=== PATIENT | female | born 1995 | race Caucasian/White ===

== ENCOUNTER 2018-11-28 19:28 | Emergency (ER) | payer OTHER ==
[2018-11-28 19:44] VITALS: BP 119/71; PULSE 113; TEMP 98.7; BMI 26.4
--- NOTE | 2018-11-28 19:44 | PDOC ---
Rapid Medical Evaluation Chief Complaint: Vaginal Bleeding Time Seen by Provider: 11/28/18 19:41 Medical Evaluation: Allergies Allergy/AdvReac Type Severity Reaction Status Date / Time No Known Allergies Allergy Verified 11/28/18 19:42 11/28/18 19:42 I have performed a brief in-person evaluation of this patient. The patient presents with a chief complaint of: vaginal bleeding since today not soaking a pad. LMP 8/4. h/o irregular periods. report cramping abdominal pains Pertinent physical exam findings: A&O x 3 in NAD I have ordered the following: CBC, hcg, t&S The patient will proceed to the ED for further evaluation. Discharge Disposition - Diagnosis Vaginal bleeding - Discharge Dispostion Condition at time of disposition: Stable - Referrals - Patient Instructions - Post Discharge Activity
[2018-11-28 20:44] LABS: BASO % 0.7 % (0-2.0); HEMATOCRIT 42.5 % (32.4-45.2); HEMOGLOBIN 13.7 GM/dL (10.7-15.3); LYMPH % 26.5 % (8-40); MCH 29.1 pg (25.7-33.7); MCHC 32.3 g/dl (32.0-36.0); MEAN PLT VOLUME 8.6 fl (7.5-11.1); MONO % 9.8 % (3.8-10.2); PLATELET COUNT 268 K/MM3 (134-434); RBC 4.71 M/mm3 (3.60-5.2); RDW 14.2 % (11.6-15.6); WHITE BLOOD COUNT 7.7 K/mm3 (4.0-10.0)
--- NOTE | 2018-11-28 20:45 | PDOC ---
Attending Attestation - Resident Resident Name: Jonnie Ballesteros - ED Attending Attestation I have performed the following: I have examined & evaluated the patient, The case was reviewed & discussed with the resident, I agree w/resident's findings & plan - HPI HPI: 11/28/18 21:57 see resident hpi - Physicial Exam PE: 11/28/18 21:58 agree with resident exam - Medical Decision Making 11/28/18 21:58 23-year-old female, with passage of tissue and vaginal bleeding Tissue retrieved in the emergency department is consistent with embryo within the gestational sac Ultrasound shows no significant findings History and exam most consistent with completed Patient is currently asymptomatic, she will be discharged to follow-up with her [facility] and to return if fever or worsening pain develops
[2018-11-28 21:15] LABS: ALBUMIN 4.2 g/dl (3.4-5.0); BILIRUBIN,TOTAL 0.9 mg/dL (0.2-1); BLOOD UREA NITROGEN 6.2 mg/dL (7-18); CALCIUM 8.8 mg/dL (8.5-10.1); CREATININE 0.7 mg/dL (0.55-1.3); POTASSIUM 3.9 mmol/L (3.5-5.1); TOT PROT 7.7 g/dl (6.4-8.2)
--- NOTE | 2018-11-28 21:16 | PDOC ---
History of Present Illness - General Chief Complaint: Vaginal Bleeding Stated Complaint: VAGINAL BLEEDING Time Seen by Provider: 11/28/18 19:41 History Source: Patient Exam Limitations: No Limitations - History of Present Illness Initial Comments: 11/28/18 21:10 23 yo F with no past medical history presents to the emergency department with vaginal bleeding and lower abdominal pain bilaterally that began today at 4 pm. LMP 8/8 and endorses monthly (1x per month) menstrual cycles without hx of STDs. Per the patient, she is not on contraceptives. She saw her OBGYN (Rusty Cordova) 3 days ago for status. 2 weeks ago she had a positive at home . Currently, she has cramping like lower abdominal pain with radiation to the lower back without relieving or aggravating factors. Denies the following: fever, chills, nausea, vomiting, chest pain, SOB, leg pain/ swelling, headaches, lightheadedness. Shx: None Allergies: NKDA Social: Denies tobacco and alcohol use. Meds: None Past History - Past Medical History Allergies/Adverse Reactions: Allergies Allergy/AdvReac Type Severity Reaction Status Date / Time No Known Allergies Allergy Verified 11/28/18 19:42 COPD: No - Psycho Social/Smoking Cessation Hx Smoking History: Never smoked Review of Systems - Review of Systems Able to Perform ROS?: Yes Is the patient limited Z[place]ian proficient: No Constitutional: No: Chills, Diaphoresis, Fever, Weakness HEENTM: No: Eye Pain, Ear Pain, Nose Pain, Throat Pain, Mouth Pain Respiratory: No: Cough, Shortness of Breath, Hemoptysis ABD/GI: Yes: Abdominal cramping. No: Constipated, Diarrhea, Nausea, Rectal Bleeding, Vomiting, Tarry Stools : No: Burning, Dysuria, Hematuria, Incontinence Musculoskeletal: No: Back Pain, Joint Pain, Neck Pain Integumentary: No: Bruising, Erythema, Rash Neurological: No: Headache, Numbness, Tingling, Tremors Psychiatric: No: Change in Appetite Endocrine: No: Unexplained Weight Gain Hematologic/Lymphatic: No: Anemia *Physical Exam - Vital Signs Last Vital Signs Temp Pulse Resp BP Pulse Ox 98.7 F 113 H 18 119/71 98 11/28/18 19:42 11/28/18 19:42 11/28/18 19:42 11/28/18 19:42 11/28/18 19:42 - Physical Exam General Appearance: Yes: Nourished, Appropriately Dressed. No: Apparent Distress, Intoxicated HEENT: positive: EOMI, BEBA, Normal Voice, Symmetrical, Pharynx Normal, Hearing Grossly Normal. negative: Pale Conjunctivae, Scleral Icterus (R), Scleral Icterus (L), Muffled/Hoarse voice, Pharyngeal Erythema, Tonsillar Exudate, Tonsillar Erythema, Nasal Congestion, Rhinorrhea, Excessive drooling Neck: positive: Trachea midline, Supple. negative: Tender, Lymphadenopathy (R) , Lymphadenopathy (L), Tender lateral, Tender midline Respiratory/Chest: positive: Lungs Clear, Normal Breath Sounds. negative: Chest Tender, Respiratory Distress, Accessory Muscle Use, Crackles, Rales, Rhonchi, Stridor, Wheezing Cardiovascular: positive: Regular Rhythm, Regular Rate, S1, S2. negative: Systolic Murmur Female Pelvic Exam: positive: normal external exam, cervical os closed. negative: CMT, adnexal tenderness, vaginal bleeding Gastrointestinal/Abdominal: positive: Normal Bowel Sounds, Tender (bilateral lower abdomen and midline lower abdomen. ), Flat, Soft Lymphatic: negative: Adenopathy Musculoskeletal: positive: Normal Inspection. negative: CVA Tenderness, Vertebral Tenderness Extremity: positive: Normal Capillary Refill, Normal Inspection, Normal Range of Motion. negative: Tender, Swelling, Calf Tenderness Integumentary: positive: Normal Color, Dry, Warm. negative: Swelling, Ecchymosis Neurologic: positive: automatic spinning lathe setter II-XII NML intact, Fully Oriented, Alert, Normal Mood/ Affect, Normal Response, Motor Strength 5/5 ED Treatment Course - LABORATORY CBC & Chemistry Diagram: 11/28/18 20:26 11/28/18 20:26 - ADDITIONAL ORDERS Additional order review: Laboratory Results 11/28/18 20:26 Urine HCG, Qual Positive 11/28/18 20:26 RBC 4.71 MCV 90.0 MCHC 32.3 RDW 14.2 MPV 8.6 Neutrophils % 62.0 Lymphocytes % 26.5 Monocytes % 9.8 Eosinophils % 1.0 Basophils % 0.7 - RADIOLOGY Radiology Studies Ordered: Category Date Time Status TRANSVAGINAL US PREG [US] Stat Ultrasound 11/28/18 20:51 Ordered Medical Decision Making - Medical Decision Making 23 yo F with no past medical history presents to the emergency department with vaginal bleeding and lower abdominal pain bilaterally that began today at 4 pm. Initial vitals: Initial Vital Signs Temp Pulse Resp BP Pulse Ox 98.7 F 113 H 18 119/71 98 11/28/18 19:42 11/28/18 19:42 10 19:42 11/28/18 19:42 11/28/18 19:42 Work up: likely complete . patient presents with specimen that appears to be an intact fetus with gestational sac. No blood noted in the vaginal vault. Will obtain TVUS to confirm no retained products of conception. Laboratory Tests 11/28/18 11/28/18 11/28/18 20:26 20:26 20:26 WBC 7.7 RBC 4.71 Hgb 13.7 Hct 42.5 MCV 90.0 MCH 29.1 MCHC 32.3 RDW 14.2 Plt Count 268 MPV 8.6 Absolute Neuts (auto) 4.8 Neutrophils % 62.0 Lymphocytes % 26.5 Monocytes % 9.8 Eosinophils % 1.0 Basophils % 0.7 Nucleated RBC % 0 Sodium 136 Potassium 3.9 Chloride 105 Carbon Dioxide 26 Anion Gap 6 L BUN 6.2 L Creatinine 0.7 Est GFR (CKD-EPI)AfAm 142.54 Est GFR (CKD-EPI)NonAf 122.98 Random Glucose 93 Calcium 8.8 Total Bilirubin 0.9 AST 12 L ALT 23 Alkaline Phosphatase 73 Total Protein 7.7 Albumin 4.2 Beta HCG, Quant 5442.9 Urine Color Urine Appearance Urine pH Ur Specific Mclean Urine Protein Urine Glucose (UA) Urine Ketones Urine Blood Urine Nitrite Urine Bilirubin Urine Urobilinogen Ur Leukocyte Esterase Urine WBC (Auto) Urine RBC (Auto) Urine Casts (Auto) U Epithel Cells (Auto) Urine Bacteria (Auto) Urine HCG, Qual Positive Blood Type Antibody Screen 11/28/18 11/28/18 20:26 20:26 WBC RBC Hgb Hct MCV MCH MCHC RDW Plt Count MPV Absolute Neuts (auto) Neutrophils % Lymphocytes % Monocytes % Eosinophils % Basophils % Nucleated RBC % Sodium Potassium Chloride Carbon Dioxide Anion Gap BUN Creatinine Est GFR (CKD-EPI)AfAm Est GFR (CKD-EPI)NonAf Random Glucose Calcium Total Bilirubin AST ALT Alkaline Phosphatase Total Protein Albumin Beta HCG, Quant Urine Color Hyder Urine Appearance Clear Urine pH 6.0 Ur Specific Mclean 1.021 Urine Protein Trace Urine Glucose (UA) Negative Urine Ketones Negative Urine Blood 3+ H Urine Nitrite Negative Urine Bilirubin Negative Urine Urobilinogen 1.0 Ur Leukocyte Esterase Negative Urine WBC (Auto) 1 Urine RBC (Auto) 559 Urine Casts (Auto) 1 U Epithel Cells (Auto) 1.0 Urine Bacteria (Auto) 27.9 Urine HCG, Qual Blood Type O NEGATIVE Antibody Screen Negative Patient bhcg 5400s. the patient also has blood type that is O-. I advised the patient to obtain rhogam given this is her first and the possibility of future miscarriages secondary to antibodies. the patient stated she would like to receive the injection with her OBGYN physician and refused the injection within our department. he states she will obtain the injection within 72 hours from her OGYN office. TVUS shows of unknown location, but none were visualized in the uterus. will follow up with her physician. stable at discharge. dISPO: Discharge Discharge - Discharge Information Problems reviewed: Yes Clinical Impression/Diagnosis: Vaginal bleeding Condition: Stable Disposition: HOME - Admission No - Follow up/Referral Referrals: Agnes Liu MD [Staff Physician] - [facility] [Provider Group] - Patient Discharge Instructions Patient Printed Discharge Instructions: DI for Miscarriage Additional Instructions: You were seen in the emergency department for the evaluation of your vaginal bleeding. Your ultrasound does not show an intrauterine . Please follow up with your primary medical doctor or OBGYN for a recheck on your beta hcg in 48 hours. Please make sure this occurs. Please return to the emergency department if you have worsening pain. Thank you. - Post Discharge Activity
[2018-11-28 22:07] LABS: HYALINE CASTS 1 /lpf (0-8); URINE APPEARANCE CLEAR; URINE BACTERIA 27.9 /hpf (NEGATIVE); URINE BILIRUBIN NEGATIVE (NEGATIVE); URINE COLOR ORANGE; URINE GLUCOSE (UA) NEGATIVE (NEGATIVE); URINE KETONE NEGATIVE (NEGATIVE); URINE LEUK ESTERASE NEGATIVE (NEGATIVE); URINE NITRITE NEGATIVE (NEGATIVE); URINE PROTEIN TRACE (NEGATIVE); URINE RBC 559 /hpf (0-4); URINE WBC 1 /hpf (0-5)
[2018-11-28] MEDS ORDERED: ACETAMINOPHEN 325 MG TABLET (FP) PO ONE (22:26)
[2018-11-28] MEDS ORDERED: ACETAMINOPHEN 325 MG TABLET (FP) ONE (22:27)
== END 2018-11-28 22:34 | disposition home or self-care (01) ==
LOC: JER 19:28
DX: O26.891 Other specified pregnancy related conditions, first trimester (principal); O20.8 Other hemorrhage in early pregnancy; Z3A.00 Weeks of gestation of pregnancy not specified
CPT/HCPCS: 36415; 76817-TC; 80053; 81003; 84702; 84703; 85025; 86850; 86900; 86901; 87086; 99283-25